=== PATIENT | female | born 1970 | race Caucasian/White ===

== ENCOUNTER → 2017-09-02 | Outpatient (CLI) | payer BC ==
[~2017-09-02] MED LIST: BUPRENORPHINE HY2 MG SL; LISINOPRIL20 MG PO; OXYCODONE HCL5 MG PO; SUBOXONE 8 MG-1 EACH SL
== END | disposition home or self-care (01) ==
LOC: LAB 09:04
DX: R61 Generalized hyperhidrosis (principal); Z78.0 Asymptomatic menopausal state